=== PATIENT | female | born 1990 | race Caucasian/White ===

== ENCOUNTER 2017-01-09 18:17 | Inpatient (IN) | payer BC ==
[~2017-01-09] VITALS: Ht 157.5 cm; Wt 94.1 kg
[~2017-01-09 18:17] MED LIST: PREN1TAB49 PO
[2017-01-09] MEDS ORDERED: MAGNESIUM SULFATE 4 GM/100 ML 100 ML IV ONE (19:00)
[2017-01-09 19:33] VITALS: Ht 157.5 cm; Wt 94.1 kg
[2017-01-09 19:34] VITALS: BP 116/60; PULSE 106; RESP 20
[2017-01-09] MEDS: LACTATED RINGER'S 1,000 ML IV SCH (19:38)
[2017-01-09 19:58] LABS: ADD SCAN DIFF NO
[2017-01-09 20:01] LABS: BASOPHILS % 0.1 % (0.0-2.0); EOSINOPHILS # 0.1 10^3/ul (0.0-0.5); EOSINOPHILS % 0.7 % (0.0-7.0); HEMOGLOBIN 10.1 g/dl (12.0-16.0); LYMPHOCYTES # 0.9 10^3/ul (0.8-2.9); LYMPHOCYTES % 8.9 % (15.0-51.0); MEAN CORPUSCULAR HEMOGLOBIN 31.1 pg (29.0-33.0); MEAN CORPUSCULAR HGB CONC 34.8 g/dl (32.0-37.0); MEAN CORPUSCULAR VOLUME 89.2 fl (82.0-101.0); MEAN PLATELET VOLUME 11.1 fl (7.4-10.4); MONOCYTE # 0.3 10^3/ul (0.3-0.9); MONOCYTES % 2.8 % (0.0-11.0); NEUTROPHIL # 8.9 10^3/ul (1.6-7.5); NEUTROPHILS % 86.9 % (39.0-77.0); PLATELET COUNT 172 10^3/UL (140-415); RED BLOOD COUNT 3.25 10^6/ul (4.20-5.40); RED CELL DISTRIBUTION WIDTH 13.7 % (11.5-14.5); WHITE BLOOD COUNT 10.2 10^3/ul (4.8-10.8)
--- NOTE | 2017-01-09 20:04 | HP ---
Date/Time of Note Date/Time of Note DATE: 01/09/17 TIME: 19:59 OB - History Hx of Present Free Text/Dictation admitted C/O onset of fever, abdominal pain , and urinary frequency since AMof the admission denies ROM Estimated Due Date: Mar 15, 2017 : 8 Para: 4 Spontaneous : 2 Therapeutic : 1 Care: Limited Care Ultrasounds: Other (not availaboe ) Obstetrical Complications: None Medical Complications: None Past Family/Social History * Past Medical, Surgical, Family and Obstetric Histories reviewed from chart. OB Admission Exam Vital Signs Vital Signs Vital Signs Date Time Temp Pulse Resp B/P Pulse Ox O2 Delivery O2 Flow Rate FiO2 01/09/17 19:34 101.7 106 20 116/60 Room Air Physical Exam HEENT: WNL Heart: Rhythm Normal Lungs: Clear, Equal Abdomen: WNL Extremities: Normal Reflexes: Normal Cervical Dilatation: Fingertip Effacement: 50% Station: -3 Membranes: Intact Contractions on Admission: < 5 Minutes Apart Date/Time Contractions Began: AM Frequency of Contractions: q3 Duration: ? Intensity: Mild OB Assessment/Plan Reason for admission: IUP - Other Assessment: uterine contractions fever: R/O pyelonephritis Other plan: start tocolysis after obtaining cultures start on IV antibiotics LARRY LUNA MD Jan 09, 2017 20:04
[2017-01-09] MEDS: ACETAMINOPHEN 325 MG TAB PO PRN (20:15)
[2017-01-09] MEDS: MAGNESIUM SULFATE 20 GM/500 ML 500 ML IV SCH (20:27)
[2017-01-09] MEDS ORDERED: PIPER-TAZO 3.375 GM IV (PMX) 100 ML IVPB SCH (20:30)
[2017-01-09] MEDS: PIPER-TAZO 3.375 GM IV (PMX) 100 ML IVPB SCH (20:38)
[2017-01-09 20:44] LABS: ADD UMIC YES; UR ASCORBIC ACID NEGATIVE (NEGATIVE); UR BACTERIA FEW /HPF (NONE SEEN); UR BILIRUBIN (Dip) NEGATIVE (NEGATIVE); UR BLOOD (Dip) 1+ mg/dL (NEGATIVE); UR CLARITY CLEAR (CLEAR); UR COLOR STRAW (YELLOW); UR GLUCOSE (Dip) NEGATIVE (NEGATIVE); UR KETONES (Dip) NEGATIVE (NEGATIVE); UR LEUKOCYTE ESTERASE (Dip) TRACE Leu/ul (NEGATIVE); UR NITRITE (Dip) NEGATIVE (NEGATIVE); UR RBC 1 /HPF (0-5); UR SPECIFIC GRAVITY (Dip) 1.004 (1.003-1.030); UR SQUAMOUS EPITHELIAL CELL FEW /HPF (FEW); UR TOTAL PROTEIN (Dip) NEGATIVE (NEGATIVE); UR UROBILINOGEN (Dip) NEGATIVE (NEGATIVE)
[2017-01-09 21:29] LABS: BARBITURATES Negative (NEGATIVE); BENZODIAZEPINES Negative (NEGATIVE); CANNABINOIDS Negative (NEGATIVE); COCAINE Negative (NEGATIVE); OPIATES Negative (NEGATIVE)
[2017-01-10] MEDS: PIPER-TAZO 3.375 GM IV (PMX) 100 ML IVPB SCH ×4 (00:09→18:01)
[2017-01-10] MEDS: ACETAMINOPHEN 325 MG TAB PO PRN (06:39)
[2017-01-10] MEDS: MAGNESIUM SULFATE 20 GM/500 ML 500 ML IV SCH ×2 (06:56→17:29)
[2017-01-10] MEDS: FERROUS SULFATE (EC) 325 MG TAB PO SCH (09:14)
[2017-01-10] MEDS: MULTIVIT/MIN/FOLATE/IRON/PREN TAB PO SCH (09:14)
[2017-01-10] MEDS: LACTATED RINGER'S 1,000 ML IV SCH ×3 (11:34→21:27)
[2017-01-10 18:46] LABS: ADD SCAN DIFF NO
[2017-01-10 18:49] LABS: EOSINOPHILS # 0.1 10^3/ul (0.0-0.5); EOSINOPHILS % 1.2 % (0.0-7.0); HEMATOCRIT 30.4 % (37.0-47.0); HEMOGLOBIN 10.2 g/dl (12.0-16.0); LYMPHOCYTES # 1.2 10^3/ul (0.8-2.9); LYMPHOCYTES % 23.9 % (15.0-51.0); MEAN CORPUSCULAR HEMOGLOBIN 30.4 pg (29.0-33.0); MEAN CORPUSCULAR HGB CONC 33.6 g/dl (32.0-37.0); MEAN CORPUSCULAR VOLUME 90.5 fl (82.0-101.0); MEAN PLATELET VOLUME 10.7 fl (7.4-10.4); MONOCYTE # 0.4 10^3/ul (0.3-0.9); MONOCYTES % 7.9 % (0.0-11.0); NEUTROPHIL # 3.2 10^3/ul (1.6-7.5); NEUTROPHILS % 65.8 % (39.0-77.0); PLATELET COUNT 172 10^3/UL (140-415); RED BLOOD COUNT 3.36 10^6/ul (4.20-5.40); RED CELL DISTRIBUTION WIDTH 14.2 % (11.5-14.5); WHITE BLOOD COUNT 4.8 10^3/ul (4.8-10.8)
--- NOTE | 2017-01-10 20:42 | PN ---
Date/Time of Note Date/Time of Note DATE: 01/10/17 TIME: 20:39 OB Subjective Subjective Subjective no major complaints OB Objective Objective Objective Tmax in 24 hour in 99.9 general P/E is normal on EFM no UC seen HEENT: WNL Heart: Rhythm Normal Lungs: Clear, Equal Abdomen: WNL Extremities: Normal Reflexes: Normal OB Assessment/Plan Reason for admission: labor Other Assessment: ? pyelonephritis Other plan: continue IV ABs D/C magnesium sulfate LARRY LUNA MD Jan 10, 2017 20:42
[2017-01-10] MEDS ORDERED: BETAMET NA PHOS/AC(6 MG/ML) 5ML INJ IM ONE (21:00)
[2017-01-10] MEDS: NIFEdipine 10 MG CAP PO SCH (23:37)
[2017-01-11] MEDS: PIPER-TAZO 3.375 GM IV (PMX) 100 ML IVPB SCH ×4 (00:02→17:59)
[2017-01-11] MEDS: NIFEdipine 10 MG CAP PO SCH ×3 (06:28→18:01)
[2017-01-11] MEDS: LACTATED RINGER'S 1,000 ML IV SCH ×3 (06:29→17:01)
[2017-01-11] MEDS: FERROUS SULFATE (EC) 325 MG TAB PO SCH (09:18)
[2017-01-11] MEDS: MULTIVIT/MIN/FOLATE/IRON/PREN TAB PO SCH (09:19)
[2017-01-11] MEDS ORDERED: BETAMET NA PHOS/AC(6 MG/ML) 5ML INJ IM ONE (21:00)
--- NOTE | 2017-01-11 21:20 | DS ---
Date/Time of Note Date/Time of Note DATE: 01/11/17 TIME: 21:18 Obstetrical Discharge Record Final Diagnosis Final Diagnosis: not delivered Other Final Diagnosis labor pyelonephritis Complications Infection (pyelonephritis) Tocolytics: Magnesium Sulfate, Other (Nifedipine ) Condition on Discharge Physical Assessment Last Vitals: see nurses notes Voiding: Yes Bowel Movement: Yes Breast: Soft, non-tender, Filling Fundus: Other (gravid ) Abdomen and Incision: Soft BS + gravid Episiotomy: NA Calf Tenderness: No Patient Condition: Good LARRY LUNA MD Jan 11, 2017 21:20
[2017-01-11] MEDS ORDERED: NIFE10CA19 PO (21:24)
--- NOTE | 2017-01-11 21:24 | PD.PPDC ---
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
== END 2017-01-11 22:30 | disposition home or self-care (01) | DRG 781 ==
LOC: OBT 18:17 → L-D 18:18 → OBG 21:00 → OBT 22:22
PROVIDERS: ADMIT Obstetrics & Gynecology; ATTEND Obstetrics & Gynecology
DX: O23.03 Infections of kidney in pregnancy, third trimester (principal); Z3A.32 32 weeks gestation of pregnancy
CPT/HCPCS: 80307; 81001; 83735; 85025; 87040; 87086; G0463; J0702; J2543; J3475; J7120